=== PATIENT | female | born 1970 | race Caucasian/White ===

== ENCOUNTER 2019-10-02 00:17 | Emergency (ER) | payer MEDICAID, OTHER ==
[~2019-10-02] VITALS: Ht 149.9 cm; Wt 61.2 kg
--- NOTE | 2019-10-02 00:31 | NUR ---
PT AMBULATED TO BED
[2019-10-02 00:36] VITALS: BP 148/90
--- NOTE | 2019-10-02 00:42 | NUR ---
PATIENT PRESENTS TO ED WITH LEFT FLANK PAIN AND LEFT CHEST PAIN X 2 WEEKS. PAIN STATES PAIN MOVED TO LEFT SIDE OF NECK AND HEAD/EYE. PT NOW C/O OF HOT SKIN ON LEFT SIDE OF BODY AND PAIN IN INSIDE OF BODY FEELS COLD. PT STATES TAKING NEPOXEN WITH NO RELIEF. NKA NO PMH. DENIES N/V/D; SKIN IS PINK/WARM/DRY; AAOX4 WITH EVEN AND STEADY GAIT; LUNGS CLEAR BL; HR EVEN AND REGULAR; PT DENIES ANY FEVER, CP, SOB, OR COUGH AT THIS TIME; PATIENT STATES PAIN OF 10/10 AT THIS TIME; VSS; PATIENT POSITIONED FOR COMFORT; HOB ELEVATED; BEDRAILS UP X2; BED DOWN. ER MD MADE AWARE OF PT STATUS.
[2019-10-02] MEDS ORDERED: CYCLOBENZAPRINE 10 MG TAB PO ONE (00:50)
[2019-10-02] MEDS ORDERED: MORPHINE SULFATE 4 MG/ML SYR IVP ONE (00:50)
[2019-10-02] MEDS ORDERED: FAMOTIDINE 20 MG TAB PO ONE (00:50)
--- NOTE | 2019-10-02 01:10 | NUR ---
EKG PERFORMED AT BEDSIDE WITH SPOUSE PRESENT
[2019-10-02 01:11] LABS: BASOPHILS % (AUTO) 0.4 % (0.0-2.0); EOSINOPHILS # (AUTO) 0.2 K/uL (0-0.4); EOSINOPHILS % (AUTO) 2.2 % (0.0-4.0); HEMATOCRIT 40.4 % (36-48); HEMOGLOBIN 13.9 g/dL (12.0-16.0); LYMPHOCYTES # (AUTO) 2.9 K/uL (2.5-16.5); LYMPHOCYTES % (AUTO) 33.1 % (20.5-51.1); MEAN CORPUSCULAR HEMOGLOBIN 32 pg (27-31); MEAN CORPUSCULAR HGB CONC 34 g/dL (33-37); MEAN CORPUSCULAR VOLUME 92.6 fL (80-94); MONOCYTES # (AUTO) 0.8 K/uL (0.8-1.0); MONOCYTES % (AUTO) 9.1 % (1.7-9.3); NEUTROPHILS # (AUTO) 4.8 K/uL (1.8-7.7); NEUTROPHILS % (AUTO) 55.2 % (42.2-75.2); PLATELET COUNT (AUTO) 355 K/uL (140-450); RED BLOOD CELL COUNT(AUTO) 4.36 MIL/uL (4.20-5.40); RED CELL DISTRIBUTION WIDTH 13.2 % (11.6-13.7); WHITE BLOOD COUNT (AUTO) 8.7 K/uL (4.8-10.8)
[2019-10-02 01:20] LABS: ANION GAP 11.8 (8-16); CARBON DIOXIDE 28.1 mmol/L (21-32); CREATININE 0.8 mg/dL (0.6-1.3); POTASSIUM 3.9 mmol/L (3.5-5.1)
[2019-10-02 01:27] LABS: ALBUMIN 3.8 g/dL (3.4-5.0); TOTAL BILIRUBIN 0.2 mg/dL (0.0-1.0)
[2019-10-02] MEDS ORDERED: AMOXIL/CLAVULANATE 875/125 MG 1 TAB PO ONE (01:45)
--- NOTE | 2019-10-02 01:45 | NUR ---
SPOKE TO HOUSE SUP. WAITING FOR MEDICATION NOT IN PIXIS. HOUSE SUP BUSY AT MOMENT WILL BRING DOWN TO ER IN A MINUTE. DC IS READY, WAITING FOR FIRST DOSE OF AGUMENTIN.
[2019-10-02] MEDS ORDERED: AMOXIL/CLAVULANATE 875/125 MG 1 TAB ONE (02:27)
--- NOTE | 2019-10-02 02:36 | NUR ---
NO CHANGES FROM PREVIOUS ASSESSMENT. VSS. Patient discharged with v/s stable. Written and verbal after care instructions given and explained. Patient alert, oriented and verbalized understanding of instructions. Ambulatory with steady gait. All questions addressed prior to discharge. ID band removed. Patient advised to follow up with PMD. Rx of FLEXERIL, MOTRIN, AUGMENTIN given. Patient educated on indication of medication including possible reaction and side effects. Opportunity to ask questions provided and answered.
[2019-10-02 02:38] VITALS: BP 142/88
== END 2019-10-02 02:39 | disposition home or self-care (01) ==
LOC: MED 00:17
DX: M54.9 Dorsalgia, unspecified (principal); H66.92 Otitis media, unspecified, left ear
CPT/HCPCS: 36415; 80053; 84484; 85025; 93005; 96374; 99284; J2270